=== PATIENT | female | born 1980 | race Caucasian/White ===

== ENCOUNTER 2017-02-19 17:20 | Emergency (ER) | payer MEDICAID, OTHER ==
[~2017-02-19] VITALS: Ht 162.6 cm; Wt 107.4 kg
[~2017-02-19 17:20] MED LIST: DEXL60CA PO; DULO30CA2 PO; LABE100T3 PO; METO10TA82 PO; PRED5TAB PO; hydrochloroquine PO
[2017-02-19] MEDS ORDERED: HYDR200T PO (17:35)
[2017-02-19] MEDS ORDERED: TRIA1TAB5 PO (17:35)
[2017-02-19] MEDS ORDERED: AMLO5TAB2 PO (17:35)
[2017-02-19] MEDS ORDERED: METH25VI57 SQ (17:35)
[2017-02-19] MEDS ORDERED: MYCO500T PO (17:35)
[2017-02-19] MEDS ORDERED: ESOM40CA PO (17:35)
[2017-02-19] MEDS ORDERED: ATEN25TA PO (17:35)
[2017-02-19] MEDS ORDERED: TOFA5TAB PO (17:36)
[2017-02-19] MEDS ORDERED: METOCLOPRAMIDE 5 MG/ML, 2ML ONE (17:53)
[2017-02-19] MEDS ORDERED: KETOROLAC 30 MG/1 ML ONE (17:53)
[2017-02-19] MEDS ORDERED: SODIUM CHLORIDE FLUSH 10ML SYR IVF ONE (18:00)
[2017-02-19] MEDS ORDERED: SODIUM CHLORIDE 0.9% 1,000ML IVBOLUS ONE (18:00)
[2017-02-19] MEDS ORDERED: METOCLOPRAMIDE 5 MG/ML, 2ML IVPush ONE (18:00)
[2017-02-19] MEDS ORDERED: KETOROLAC 30 MG/1 ML IVPush ONE (18:00)
[2017-02-19 18:15] LABS: ASPARTATE AMINO TRANSFERASE 24 U/L (15-37); BLOOD UREA NITROGEN 12 mg/dL (7-18)
[2017-02-19 18:43] LABS: HCG UR OBC PASS
[2017-02-19 19:18] VITALS: BP 100/61
[2017-02-19 19:19] LABS: ANISOCYTOSIS 1+; MICROCYTOSIS 1+; POLYCHROMASIA 1+
[2017-02-19 19:20] LABS: LARGE PLATELETS 1+
== END 2017-02-19 19:21 | disposition home or self-care (01) ==
LOC: ED 17:54
DX: R19.7 Diarrhea, unspecified (principal); B34.9 Viral infection, unspecified; R11.2 Nausea with vomiting, unspecified; I10 Essential (primary) hypertension; M32.9 Systemic lupus erythematosus, unspecified
CPT/HCPCS: 36415; 70450; 80053; 81003; 81025; 85025; 96361; 96374; 96375; 99285; J1885; J2765; J7030

== ENCOUNTER 2018-04-14 12:50 | Emergency (ER) | payer MEDICAID ==
[~2018-04-14] VITALS: Ht 162.6 cm; Wt 93.2 kg
[~2018-04-14 12:50] MED LIST changes: +AMLO5TAB7 PO; +ATEN25TA PO; -DEXL60CA PO; +DEXL60CA2 PO; +ESOM40CA PO; +HYDR200T72 PO; -LABE100T3 PO; +LABE100T6 PO; +METH25VI57 SQ; +MYCO500T PO; +TOFA5TAB PO; +TRIA1TAB5 PO
[2018-04-14] MEDS ORDERED: SODIUM CHLORIDE FLUSH 10ML SYR IVF ONE (13:30)
[2018-04-14] MEDS ORDERED: ONDANSETRON 2MG/ML, 2ML IVPush ONE (13:30)
[2018-04-14] MEDS ORDERED: LORazepam 2 MG/ML, 1ML IVPush ONE (13:30)
[2018-04-14] MEDS ORDERED: SODIUM CHLORIDE 0.9% 1,000ML IVBOLUS ONE (13:30)
[2018-04-14] MEDS ORDERED: LORazepam 2 MG/ML, 1ML ONE (13:37)
[2018-04-14] MEDS ORDERED: ONDANSETRON ODT 4 MG ONE (13:37)
[2018-04-14 13:40] LABS: ALANINE AMINOTRANSFERASE 58 U/L (12-78); ALBUMIN 3.1 g/dL (3.4-5.0); ANION GAP 10 mmol/L (5-15); CALCIUM 8.2 mg/dL (8.5-10.1); CHLORIDE 106 mmol/L (98-107); CREATININE 0.66 mg/dL (0.55-1.02)
[2018-04-14 13:42] LABS: ALKALINE PHOSPHATASE 95 U/L (45-117); BILIRUBIN,TOTAL 0.3 mg/dL (0.2-1.0); TOTAL PROTEIN 7.5 g/dL (6.4-8.2)
[2018-04-14 13:43] LABS: MEAN CORPUSCULAR HEMOGLOBIN 24.9 pg (27.0-34.8); MEAN CORPUSCULAR HGB CONC 32.4 g/dL (32.4-35.8); MEAN CORPUSCULAR VOLUME 76.8 fL (80-100); MEAN PLATELET VOLUME 9.3 fL (7.4-10.4); PLATELET COUNT 237 x10^3/uL (130-400); RED BLOOD COUNT 5.03 x10^6/uL (3.82-5.3); RED CELL DISTRIBUTION WIDTH 28.8 % (9.6-15.2)
[2018-04-14 13:54] LABS: MICROSCOPIC INDICATED
[2018-04-14 13:58] LABS: HCG UR SG >= 1.030 (1.003-1.030)
[2018-04-14] MEDS ORDERED: ONDANSETRON ODT 4 MG PO ONE (14:00)
[2018-04-14 14:28] LABS: BASOPHILS # (AUTO) 0.01 x10^3/uL (0-0.1); BASOPHILS % (AUTO) 0 % (0-1); EOSINOPHILS # (AUTO) 0.06 x10^3/uL (0-0.4); EOSINOPHILS % (AUTO) 1 % (1-7); LYMPHOCYTES # (AUTO) 1.68 x10^3/uL (1-3.4); LYMPHOCYTES % (AUTO) 34 % (22-44); MD SCAN; MONOCYTES # (AUTO) 0.33 x10^3/uL (0.2-0.8); MONOCYTES % (AUTO) 7 % (2-9); NEUTROPHILS # (AUTO) 2.92 x10^3/uL (1.8-6.8); NEUTROPHILS % (AUTO) 59 % (42-75)
[2018-04-14 14:38] LABS: CULTURE INDICATED? NO
[2018-04-14 15:15] VITALS: BP 138/77
== END 2018-04-14 15:23 | disposition home or self-care (01) ==
LOC: ED 13:30
DX: A08.4 Viral intestinal infection, unspecified (principal); Z88.8 Allergy status to other drugs, medicaments and biological substances; I10 Essential (primary) hypertension
CPT/HCPCS: 36415; 74021; 80053; 81001; 81025; 83605; 83690; 85025; 96361; 96374; 99285; J2060; J7030; Q0162

== ENCOUNTER 2018-05-11 14:27 | Inpatient (IN) | payer MEDICAID ==
[~2018-05-11] VITALS: Ht 162.6 cm; Wt 94.7 kg
[2018-05-11] MEDS ORDERED: FAMOTIDINE 20 MG/2 ML IVP ONE (15:00)
[2018-05-11] MEDS ORDERED: ONDANSETRON 2MG/ML, 2ML IVPush ONE (15:00)
[2018-05-11] MEDS ORDERED: METOCLOPRAMIDE 5 MG/ML, 2ML IVPush ONE (15:00)
[2018-05-11 15:13] LABS: MEAN CORPUSCULAR HEMOGLOBIN 26.2 pg (27.0-34.8); MEAN CORPUSCULAR HGB CONC 32.5 g/dL (32.4-35.8); MEAN CORPUSCULAR VOLUME 80.5 fL (80-100); PLATELET COUNT 228 x10^3/uL (130-400); RED BLOOD COUNT 6.16 x10^6/uL (3.82-5.3); RED CELL DISTRIBUTION WIDTH 24.4 % (9.6-15.2)
[2018-05-11 15:15] LABS: ALANINE AMINOTRANSFERASE 91 U/L (12-78); ALBUMIN 3.7 g/dL (3.4-5.0); ANION GAP 11 mmol/L (5-15); CALCIUM 9.2 mg/dL (8.5-10.1); CHLORIDE 102 mmol/L (98-107); CREATININE 0.62 mg/dL (0.55-1.02)
[2018-05-11] MEDS ORDERED: MORPHINE SULFATE 4 MG/ML, 1ML ONE ×3 (15:19→16:40)
[2018-05-11] MEDS ORDERED: METOCLOPRAMIDE 5 MG/ML, 2ML ONE (15:19)
[2018-05-11 15:20] LABS: ALKALINE PHOSPHATASE 131 U/L (45-117); BILIRUBIN,TOTAL 0.5 mg/dL (0.2-1.0); TOTAL PROTEIN 8.7 g/dL (6.4-8.2)
[2018-05-11] MEDS ORDERED: FAMOTIDINE 20 MG/2 ML ONE (15:20)
[2018-05-11] MEDS: MORPHINE SULFATE 4 MG/ML, 1ML IVPush PRN ×4 (15:23→22:03)
[2018-05-11 15:38] LABS: BASOPHILS # (AUTO) 0.01 x10^3/uL (0-0.1); BASOPHILS % (AUTO) 0 % (0-1); EOSINOPHILS # (AUTO) 0.03 x10^3/uL (0-0.4); EOSINOPHILS % (AUTO) 0 % (1-7); LYMPHOCYTES # (AUTO) 1.11 x10^3/uL (1-3.4); LYMPHOCYTES % (AUTO) 10 % (22-44); MD MORPH REVIEW ONLY; MONOCYTES % (AUTO) 4 % (2-9); NEUTROPHILS # (AUTO) 9.58 x10^3/uL (1.8-6.8); NEUTROPHILS % (AUTO) 85 % (42-75)
[2018-05-11 15:41] LABS: <PLATELET ESTIMATE> ADEQUATE; ANISOCYTOSIS 1+; MICROCYTOSIS 1+; POLYCHROMASIA 1+
[2018-05-11 15:43] LABS: <PLT MORPHOLOGY> NORMAL PLT MORPH
[2018-05-11] MEDS ORDERED: OMNIPAQUE 350 MG/ML, 100ML BOTTLE ONE (15:57)
[2018-05-11] MEDS ORDERED: SODIUM CHLORIDE 0.9% 1,000ML IVBOLUS ONE ×2 (16:00)
[2018-05-11] MEDS ORDERED: BUPR100T11 PO (16:52)
[2018-05-11] MEDS ORDERED: MORPHINE SULFATE 4 MG/ML, 1ML IVPush ONE (17:00)
[2018-05-11] MEDS ORDERED: PROMETHAZINE 25 MG/ML, 1ML IM PRN (17:30)
[2018-05-11] MEDS ORDERED: METOCLOPRAMIDE 5 MG/ML, 2ML IVPush PRN (17:30)
[2018-05-11] MEDS ORDERED: ONDANSETRON 2MG/ML, 2ML IVPush PRN (17:30)
[2018-05-11] MEDS ORDERED: ONDANSETRON ODT 4 MG PO PRN (17:30)
[2018-05-11 18:09] LABS: HEMOGLOBIN A1C 5.4 % (4.2-6.3)
[2018-05-11 19:33] VITALS: BP 157/117
[2018-05-11] MEDS: ATENOLOL 25 MG TABLET PO SCH (20:26)
[2018-05-11] MEDS: SODIUM CHLORIDE 0.9% 1,000 ML IV SCH ×2 (20:30→22:08)
[2018-05-11] MEDS: ENOXAPARIN 40 MG/0.4 ML SQ SCH (20:30)
[2018-05-11] MEDS: BUPROPION 100 MG TABLET PO SCH (20:51)
[2018-05-12 00:25] VITALS: BP 147/97
[2018-05-12] MEDS: MORPHINE SULFATE 4 MG/ML, 1ML IVPush PRN ×7 (01:01→23:05)
[2018-05-12] MEDS: SODIUM CHLORIDE 0.9% 1,000 ML IV SCH ×5 (01:05→23:13)
[2018-05-12 06:06] LABS: ALANINE AMINOTRANSFERASE 82 U/L (12-78); ALBUMIN 2.6 g/dL (3.4-5.0); ANION GAP 9 mmol/L (5-15); CALCIUM 7.4 mg/dL (8.5-10.1); CHLORIDE 108 mmol/L (98-107); CREATININE 0.46 mg/dL (0.55-1.02)
[2018-05-12 06:10] LABS: ALKALINE PHOSPHATASE 111 U/L (45-117); CHOL/HDL RATIO 2.6; CHOLESTEROL, TOTAL 128 mg/dL (140-239); HDL CHOL % 38 % (28-40); HDL CHOLESTEROL (DIRECT) 49 mg/dL (40-60); LDL CHOLESTEROL,CALCULATED 59 mg/dL (54-169); LDL/HDL RATIO 1.2 (0.5-3.0); TOTAL PROTEIN 6.2 g/dL (6.4-8.2); TRIGLYCERIDES 100 mg/dL (50-200); VLDL CHOLESTEROL 20 mg/dL (0-25)
[2018-05-12 06:14] LABS: MEAN CORPUSCULAR HEMOGLOBIN 26.2 pg (27.0-34.8); MEAN CORPUSCULAR HGB CONC 32.3 g/dL (32.4-35.8); MEAN CORPUSCULAR VOLUME 81.1 fL (80-100); MEAN PLATELET VOLUME 9.1 fL (7.4-10.4); PLATELET COUNT 180 x10^3/uL (130-400); RED BLOOD COUNT 4.77 x10^6/uL (3.82-5.3)
[2018-05-12 06:50] LABS: BASOPHILS # (AUTO) 0.02 x10^3/uL (0-0.1); BASOPHILS % (AUTO) 0 % (0-1); EOSINOPHILS % (AUTO) 1 % (1-7); LYMPHOCYTES # (AUTO) 1.08 x10^3/uL (1-3.4); LYMPHOCYTES % (AUTO) 14 % (22-44); MD SCAN; MONOCYTES % (AUTO) 6 % (2-9); NEUTROPHILS # (AUTO) 6.12 x10^3/uL (1.8-6.8); NEUTROPHILS % (AUTO) 78 % (42-75)
[2018-05-12 07:41] LABS: AMPHETAMINE SCREEN, URINE Negative (Negative); BARBITURATE SCREEN, URINE Negative (Negative); BENZODIAZEPINE SCREEN, URINE Negative (Negative); CANNABINOID SCREEN, URINE Positive (Negative); COCAINE SCREEN, URINE Negative (Negative); METHADONE SCREEN, URINE Negative (Negative); OPIATE SCREEN, URINE Positive (Negative)
[2018-05-12 07:42] VITALS: BP 126/84
[2018-05-12] MEDS: PANTOPROZOLE 40MG TABLET PO SCH (07:42)
[2018-05-12] MEDS: DULOXETINE 30 MG CAPSULE.DR PO SCH (07:43)
[2018-05-12] MEDS: ATENOLOL 25 MG TABLET PO SCH ×2 (07:43→20:55)
[2018-05-12] MEDS: TRIAMTERENE/HCTZ 75/50MG TABLET PO SCH (07:43)
[2018-05-12] MEDS: HYDROXYCHLOROQUINE 200 MG TABLET PO SCH (07:43)
[2018-05-12] MEDS: AMLODIPINE 5 MG TABLET PO SCH (07:43)
[2018-05-12] MEDS: BUPROPION 100 MG TABLET PO SCH ×2 (07:43→20:55)
[2018-05-12 07:58] LABS: MICROSCOPIC INDICATED
[2018-05-12 08:03] LABS: CULTURE INDICATED? YES
[2018-05-12] MEDS ORDERED: CALCIUM GLUCONATE 9.2 MEQ in SODIUM CHLORIDE 0.9% 100 ML IV ONE (09:00)
[2018-05-12] MEDS ORDERED: MAGNESIUM SULFATE 4 GM in SODIUM CHLORIDE 0.9% 100 ML IV ONE (09:00)
[2018-05-12] MEDS ORDERED: MAGNESIUM SULFATE PMX 4GM/100M 100 ML IV ONE (10:30)
[2018-05-12] MEDS ORDERED: POTASSIUM PHOSPHATE 44 MEQ in SODIUM CHLORIDE 0.9% 500 ML IV ONE (11:00)
[2018-05-12 12:53] VITALS: BP 113/78
[2018-05-12] MEDS: ENOXAPARIN 40 MG/0.4 ML SQ SCH (16:30)
[2018-05-12 19:36] VITALS: BP 110/74
[2018-05-13] MEDS: MORPHINE SULFATE 4 MG/ML, 1ML IVPush PRN ×2 (02:23→05:20)
[2018-05-13 03:30] VITALS: BP 91/60
[2018-05-13] MEDS: SODIUM CHLORIDE 0.9% 1,000 ML IV SCH ×5 (04:17→23:30)
[2018-05-13 04:59] LABS: MEAN CORPUSCULAR HEMOGLOBIN 26.2 pg (27.0-34.8); MEAN CORPUSCULAR HGB CONC 32.3 g/dL (32.4-35.8); MEAN CORPUSCULAR VOLUME 81.3 fL (80-100); MEAN PLATELET VOLUME 9.1 fL (7.4-10.4); PLATELET COUNT 160 x10^3/uL (130-400); RED BLOOD COUNT 4.67 x10^6/uL (3.82-5.3); RED CELL DISTRIBUTION WIDTH 24.6 % (9.6-15.2)
[2018-05-13 05:04] LABS: CHLORIDE 106 mmol/L (98-107)
[2018-05-13 05:12] LABS: ALANINE AMINOTRANSFERASE 120 U/L (12-78); ALBUMIN 2.8 g/dL (3.4-5.0); ALKALINE PHOSPHATASE 224 U/L (45-117); ANION GAP 8 mmol/L (5-15); BILIRUBIN,TOTAL 0.9 mg/dL (0.2-1.0); CALCIUM 7.8 mg/dL (8.5-10.1); CREATININE 0.49 mg/dL (0.55-1.02)
[2018-05-13 06:08] LABS: BASOPHILS # (AUTO) 0.05 x10^3/uL (0-0.1); BASOPHILS % (AUTO) 1 % (0-1); EOSINOPHILS # (AUTO) 0.28 x10^3/uL (0-0.4); EOSINOPHILS % (AUTO) 4 % (1-7); LYMPHOCYTES % (AUTO) 17 % (22-44); MD SCAN; MONOCYTES # (AUTO) 0.44 x10^3/uL (0.2-0.8); MONOCYTES % (AUTO) 6 % (2-9); NEUTROPHILS # (AUTO) 5.79 x10^3/uL (1.8-6.8); NEUTROPHILS % (AUTO) 74 % (42-75)
[2018-05-13] MEDS ORDERED: CEFTRIAXONE PMX 2GM/50ML 50 ML IVPB SCH (07:00)
[2018-05-13] MEDS: CEFTRIAXONE PMX 2GM/50ML 50 ML IVPB SCH (07:57)
[2018-05-13 08:14] VITALS: BP 101/64
[2018-05-13] MEDS: TRIAMTERENE/HCTZ 75/50MG TABLET PO SCH (08:42)
[2018-05-13] MEDS: BUPROPION 100 MG TABLET PO SCH ×2 (08:43→21:16)
[2018-05-13] MEDS: HYDROXYCHLOROQUINE 200 MG TABLET PO SCH (08:43)
[2018-05-13] MEDS: ATENOLOL 25 MG TABLET PO SCH ×2 (08:43→21:16)
[2018-05-13] MEDS: DULOXETINE 30 MG CAPSULE.DR PO SCH (08:43)
[2018-05-13] MEDS: AMLODIPINE 5 MG TABLET PO SCH (08:43)
[2018-05-13] MEDS: HYDROmorphone 2 MG/ML, 1ML IVPush PRN ×4 (08:44→21:16)
[2018-05-13] MEDS: PANTOPROZOLE 40MG TABLET PO SCH (08:50)
[2018-05-13 14:30] VITALS: BP 115/68
[2018-05-13] MEDS: ENOXAPARIN 40 MG/0.4 ML SQ SCH (16:14)
[2018-05-13 20:08] VITALS: BP 92/60
[2018-05-13 21:14] VITALS: BP 107/70
[2018-05-14] MEDS: HYDROmorphone 2 MG/ML, 1ML IVPush PRN ×3 (00:38→06:30)
[2018-05-14 03:17] VITALS: BP 95/62
[2018-05-14] MEDS: SODIUM CHLORIDE 0.9% 1,000 ML IV SCH ×2 (04:32→09:30)
[2018-05-14 05:33] LABS: ALBUMIN 2.4 g/dL (3.4-5.0); ANION GAP 8 mmol/L (5-15); CALCIUM 7.5 mg/dL (8.5-10.1); CHLORIDE 108 mmol/L (98-107)
[2018-05-14 05:37] LABS: ALANINE AMINOTRANSFERASE 68 U/L (12-78); ALKALINE PHOSPHATASE 156 U/L (45-117); BILIRUBIN,TOTAL 0.5 mg/dL (0.2-1.0); TOTAL PROTEIN 6.4 g/dL (6.4-8.2)
[2018-05-14 07:05] VITALS: BP 96/61
[2018-05-14] MEDS: DULOXETINE 30 MG CAPSULE.DR PO SCH (07:56)
[2018-05-14] MEDS: PANTOPROZOLE 40MG TABLET PO SCH (07:56)
[2018-05-14] MEDS: HYDROXYCHLOROQUINE 200 MG TABLET PO SCH (07:56)
[2018-05-14] MEDS: AMLODIPINE 5 MG TABLET PO SCH (07:57)
[2018-05-14] MEDS: BUPROPION 100 MG TABLET PO SCH (07:57)
[2018-05-14] MEDS: ATENOLOL 25 MG TABLET PO SCH (07:57)
[2018-05-14] MEDS: TRIAMTERENE/HCTZ 75/50MG TABLET PO SCH (08:00)
[2018-05-14] MEDS: CEFTRIAXONE PMX 2GM/50ML 50 ML IVPB SCH (08:00)
[2018-05-14] MEDS ORDERED: CEFD300C37 PO (10:44)
[2018-05-14] MEDS ORDERED: TRAM50TA2 PO (10:44)
[2018-05-14] MEDS ORDERED: HYDROmorphone 2 MG/ML, 1ML IVPush PRN (11:30)
== END 2018-05-14 13:38 | disposition home or self-care (01) | DRG 440 ==
LOC: ED 15:21 → EDIP 16:24 → 3NE 18:13
PROVIDERS: ADMIT Hospitalist; ATTEND Hospitalist
DX: K85.30 Drug induced acute pancreatitis without necrosis or infection (principal); T50.2X5A Adverse effect of carbonic-anhydrase inhibitors, benzothiadiazides and other diuretics, initial encounter; E66.01 Morbid (severe) obesity due to excess calories; E83.42 Hypomagnesemia; E83.51 Hypocalcemia; E86.0 Dehydration; G43.909 Migraine, unspecified, not intractable, without status migrainosus; F32.9 Major depressive disorder, single episode, unspecified; F12.90 Cannabis use, unspecified, uncomplicated; M32.9 Systemic lupus erythematosus, unspecified; I10 Essential (primary) hypertension; K76.0 Fatty (change of) liver, not elsewhere classified; Z98.51 Tubal ligation status; Y92.89 Other specified places as the place of occurrence of the external cause; Z68.35 Body mass index [BMI] 35.0-35.9, adult; Z98.84 Bariatric surgery status; Z90.49 Acquired absence of other specified parts of digestive tract; Z88.1 Allergy status to other antibiotic agents; Z88.8 Allergy status to other drugs, medicaments and biological substances; Z79.899 Other long term (current) drug therapy
CPT/HCPCS: 36415; 99285; S0028; 74177; 76700; 80053; 80061; 80074; 80307; 81001; 83036; 83690; 83735; 84100; 84703; 85025; 87040; 87086; 96361; 96374; 96375; G0378; J0610; J0696; J1170; J3475; Q9967; J2765; J7030; J7040; J7517

== ENCOUNTER 2018-11-12 11:40 | Inpatient (IN) | payer MEDICAID ==
[~2018-11-12] VITALS: Ht 162.6 cm; Wt 83.7 kg
[~2018-11-12 11:40] MED LIST changes: +AMLO-150 PO; -AMLO5TAB7 PO; +BUPR100T11 PO; +CEFD300C37 PO; +TRAM50TA2 PO
[2018-11-12] MEDS ORDERED: SODIUM CHLORIDE 0.9% 1,000 ML IV ONE (12:00)
[2018-11-12] MEDS ORDERED: SODIUM CHLORIDE FLUSH 10ML SYR IVF ONE (12:00)
[2018-11-12] MEDS ORDERED: ONDANSETRON 2MG/ML, 2ML IVPush ONE (12:00)
[2018-11-12] MEDS ORDERED: SODIUM CHLORIDE 0.9% 1,000ML IVBOLUS ONE (12:00)
[2018-11-12] MEDS ORDERED: HYDROmorphone 1 MG/ML, 1ML VIAL ONE ×2 (12:19→13:28)
[2018-11-12] MEDS ORDERED: ONDANSETRON 2MG/ML, 2ML ONE (12:19)
[2018-11-12] MEDS: HYDROmorphone 2 MG/ML, 1ML IVPush PRN ×2 (12:25→13:30)
[2018-11-12 12:31] LABS: BASOPHILS # (AUTO) 0.05 x10^3/uL (0-0.1); BASOPHILS % (AUTO) 1 % (0-1); EOSINOPHILS # (AUTO) 0.01 x10^3/uL (0-0.4); EOSINOPHILS % (AUTO) 0 % (1-7); LYMPHOCYTES # (AUTO) 1.45 x10^3/uL (1-3.4); LYMPHOCYTES % (AUTO) 16 % (22-44); MD NO; MEAN CORPUSCULAR HEMOGLOBIN 24.3 pg (27.0-34.8); MEAN CORPUSCULAR HGB CONC 32.4 g/dL (32.4-35.8); MEAN CORPUSCULAR VOLUME 75.2 fL (80-100); MEAN PLATELET VOLUME 8.4 fL (7.4-10.4); MONOCYTES % (AUTO) 7 % (2-9); NEUTROPHILS # (AUTO) 6.84 x10^3/uL (1.8-6.8); NEUTROPHILS % (AUTO) 76 % (42-75); PLATELET COUNT 244 x10^3/uL (130-400); RED BLOOD COUNT 5.42 x10^6/uL (3.82-5.3)
--- NOTE | 2018-11-12 12:34 | NUR ---
BP CUFF, PULSE OX IN PLACE. IV STARTED, LABS DRAWN WITH START. URINE COLLECTED/SENT TO LAB. MEDS AND IVF GIVEN PER ERP ORDER FOR UPPERQUADRANT ABD PAIN AND NAUSEA. CALL LIGHT WITHIN REACH, WARM BLANKET PROVIDED. LIGHTS DIMMED PER REQUEST.
[2018-11-12 12:43] LABS: ALANINE AMINOTRANSFERASE 26 U/L (12-78); ALBUMIN 3.4 g/dL (3.4-5.0); ANION GAP 8 mmol/L (5-15); CALCIUM 7.8 mg/dL (8.5-10.1); CHLORIDE 108 mmol/L (98-107); CREATININE 0.59 mg/dL (0.55-1.02)
[2018-11-12 12:45] LABS: ALKALINE PHOSPHATASE 105 U/L (45-117); BILIRUBIN,TOTAL 0.3 mg/dL (0.2-1.0); TOTAL PROTEIN 7.5 g/dL (6.4-8.2)
[2018-11-12 12:51] LABS: HCG UR SG 1.015 (1.003-1.030); MICROSCOPIC AUTO
[2018-11-12 12:54] LABS: CULTURE INDICATED? YES
[2018-11-12] MEDS ORDERED: SODIUM CHLORIDE FLUSH 10ML SYR IVF PRN (13:30)
--- NOTE | 2018-11-12 13:33 | NUR ---
PT MEDICATED FOR RETURNING PAIN, RATED 10/10. VS UPDATED IN COMPUTER.
--- NOTE | 2018-11-12 13:53 | NUR ---
REPORT TO SERVANDO RN, PT READY FOR TRANSPORT TO FLOOR. PT SLEEPING INTERMITTENTLY, PAIN DECREASED WITH DILAUDID.
[2018-11-12] MEDS ORDERED: HYDROmorphone 2 MG/ML, 1ML ONE (14:48)
[2018-11-12] MEDS: SODIUM CHLORIDE 0.9% 1,000 ML IV SCH ×2 (14:59→22:22)
[2018-11-12] MEDS ORDERED: HYDROmorphone 1 MG/ML, 1ML INJ IV PRN (15:00)
[2018-11-12] MEDS ORDERED: ONDANSETRON 2MG/ML, 2ML IVPush PRN (15:00)
[2018-11-12 15:15] VITALS: BP 162/113
[2018-11-12] MEDS ORDERED: PROMETHAZINE 25 MG/ML, 1ML IM PRN (17:00)
[2018-11-12] MEDS: HYDROmorphone 2 MG/ML, 1ML IV PRN ×2 (17:03→21:35)
[2018-11-12] MEDS ORDERED: LIDODERM 5% PATCH TD PRN (17:30)
[2018-11-12] MEDS ORDERED: LABETALOL 5MG/ML, 20ML IVPush PRN (17:30)
[2018-11-12] MEDS: ENOXAPARIN 40 MG/0.4 ML SQ SCH (17:45)
[2018-11-12 17:48] VITALS: BP 160/119
[2018-11-12] MEDS ORDERED: LABETALOL 5 MG/ML SYRINGE IVPush PRN (18:00)
[2018-11-12 18:17] LABS: BASOPHILS # (AUTO) 0.01 x10^3/uL (0-0.1); BASOPHILS % (AUTO) 0 % (0-1); MD NO; MEAN CORPUSCULAR HEMOGLOBIN 24.4 pg (27.0-34.8); RED BLOOD COUNT 5.74 x10^6/uL (3.82-5.3)
[2018-11-12 18:33] LABS: ANION GAP 10 mmol/L (5-15); CALCIUM 7.7 mg/dL (8.5-10.1); CHLORIDE 106 mmol/L (98-107); CREATININE 0.63 mg/dL (0.55-1.02)
[2018-11-12 18:43] LABS: FREE T4 (FREE THYROXINE) 0.66 ng/dL (0.76-1.46); THYROID STIMULATING HORMONE 0.405 mIU/L (0.358-3.740)
[2018-11-12 18:53] LABS: HCT (SEDRATE) 40.8 % (34.6-47.8)
[2018-11-12] MEDS: ATENOLOL 50 MG TABLET PO SCH (19:25)
[2018-11-12] MEDS: BUPROPION 100 MG TABLET PO SCH (19:25)
[2018-11-12 19:45] VITALS: BP 179/129
[2018-11-12] MEDS: PROMETHAZINE 25 MG/ML, 1ML IM PRN (19:51)
[2018-11-12 20:44] VITALS: BP 172/126
[2018-11-12] MEDS: ENALAPRILAT 1.25 MG/ML, 2ML IVPush PRN ×2 (21:34→22:22)
[2018-11-12 21:38] LABS: EOSINOPHILS % (AUTO) 0 % (1-7); LYMPHOCYTES # (AUTO) 0.84 x10^3/uL (1-3.4); LYMPHOCYTES % (AUTO) 6 % (22-44); MEAN CORPUSCULAR VOLUME 76.2 fL (80-100); MEAN PLATELET VOLUME 8.9 fL (7.4-10.4); MONOCYTES # (AUTO) 0.86 x10^3/uL (0.2-0.8); MONOCYTES % (AUTO) 7 % (2-9); NEUTROPHILS # (AUTO) 11.52 x10^3/uL (1.8-6.8); NEUTROPHILS % (AUTO) 87 % (42-75); PLATELET COUNT 156 x10^3/uL (130-400)
[2018-11-12 22:05] VITALS: BP 174/122
[2018-11-12 22:49] VITALS: BP 177/130
[2018-11-12] MEDS ORDERED: hydrALAzine 20 MG/ML, 1ML IV ONE (23:00)
[2018-11-13 00:11] VITALS: BP 159/118
[2018-11-13] MEDS: PROMETHAZINE 25 MG/ML, 1ML IM PRN ×6 (00:27→21:30)
[2018-11-13] MEDS ORDERED: hydrALAzine 20 MG/ML, 1ML IV ONE (01:00)
[2018-11-13] MEDS: HYDROmorphone 2 MG/ML, 1ML IV PRN ×6 (01:24→22:34)
[2018-11-13 01:28] VITALS: BP 152/109
[2018-11-13 01:53] VITALS: BP 145/104
[2018-11-13 04:51] LABS: HCT (SEDRATE) 44.7 % (34.6-47.8)
[2018-11-13 05:20] LABS: C-REACTIVE PROTEIN, QUANT 4.6 mg/dL (0.02-0.49)
[2018-11-13] MEDS: PANTOPROZOLE 40MG TABLET PO SCH (05:21)
[2018-11-13] MEDS: SODIUM CHLORIDE 0.9% 1,000 ML IV SCH ×2 (06:22→13:49)
[2018-11-13] MEDS: PANTOPRAZOLE 40 MG IV IVPush SCH (07:30)
[2018-11-13 08:04] VITALS: BP 163/109
[2018-11-13] MEDS: HYDROXYCHLOROQUINE 200 MG TABLET PO SCH (08:14)
[2018-11-13] MEDS: AMLODIPINE 5 MG TABLET PO SCH (08:14)
[2018-11-13] MEDS: ATENOLOL 50 MG TABLET PO SCH ×2 (08:14→19:49)
[2018-11-13] MEDS: DULOXETINE 30 MG CAPSULE.DR PO SCH (08:15)
[2018-11-13] MEDS: BUPROPION 100 MG TABLET PO SCH ×2 (08:15→19:48)
[2018-11-13 13:06] VITALS: BP 150/108
[2018-11-13] MEDS: ENALAPRILAT 1.25 MG/ML, 2ML IVPush PRN (13:49)
[2018-11-13] MEDS: ENOXAPARIN 40 MG/0.4 ML SQ SCH (18:28)
[2018-11-13 18:48] VITALS: BP 149/113
[2018-11-14 01:20] VITALS: BP 120/84
[2018-11-14] MEDS: HYDROmorphone 2 MG/ML, 1ML IV PRN ×6 (02:30→23:23)
[2018-11-14 06:00] LABS: MEAN CORPUSCULAR HEMOGLOBIN 24.8 pg (27.0-34.8); MEAN CORPUSCULAR HGB CONC 32.9 g/dL (32.4-35.8); MEAN CORPUSCULAR VOLUME 75.3 fL (80-100); PLATELET COUNT 151 x10^3/uL (130-400); RED BLOOD COUNT 5.42 x10^6/uL (3.82-5.3); RED CELL DISTRIBUTION WIDTH 20.1 % (9.6-15.2)
[2018-11-14 06:09] LABS: ALBUMIN 2.7 g/dL (3.4-5.0); ANION GAP 10 mmol/L (5-15); CALCIUM 7.9 mg/dL (8.5-10.1); CHLORIDE 106 mmol/L (98-107)
[2018-11-14 06:12] LABS: ALANINE AMINOTRANSFERASE 19 U/L (12-78); ALKALINE PHOSPHATASE 121 U/L (45-117); BILIRUBIN,TOTAL 0.9 mg/dL (0.2-1.0); CREATININE 0.56 mg/dL (0.55-1.02); TOTAL PROTEIN 6.9 g/dL (6.4-8.2)
[2018-11-14 06:27] LABS: C-REACTIVE PROTEIN, QUANT > 19.00 mg/dL (0.02-0.49)
[2018-11-14] MEDS: PANTOPRAZOLE 40 MG IV IVPush SCH (06:28)
[2018-11-14] MEDS: PANTOPROZOLE 40MG TABLET PO SCH (06:28)
[2018-11-14 07:40] VITALS: BP 120/79
[2018-11-14] MEDS: DULOXETINE 30 MG CAPSULE.DR PO SCH (07:51)
[2018-11-14] MEDS: AMLODIPINE 5 MG TABLET PO SCH (07:51)
[2018-11-14] MEDS: BUPROPION 100 MG TABLET PO SCH ×2 (07:51→19:15)
[2018-11-14] MEDS: HYDROXYCHLOROQUINE 200 MG TABLET PO SCH (07:52)
[2018-11-14] MEDS: ATENOLOL 50 MG TABLET PO SCH ×2 (07:52→19:15)
[2018-11-14 08:21] LABS: MD YES
[2018-11-14 08:23] LABS: BAND#(MANUAL) 1.97 x10^3/uL; BANDS%(MANUAL) 10 % (0-7); LYMPH#(MANUAL) 0.59 x10^3/uL (1-3.4); LYMPHS% (MANUAL) 3 % (22-44); MONOS#(MANUAL) 0.59 x10^3/uL (0.3-2.7); MONOS% (MANUAL) 3 % (2-9); SEG#(MANUAL) 16.55 x10^3/uL (1.8-6.8); SEGS% (MANUAL) 84 % (42-75)
[2018-11-14 08:24] LABS: ANISOCYTOSIS 1+; MICROCYTOSIS 1+
[2018-11-14 08:25] LABS: OVALOCYTES 1+; TARGET CELLS 1+
[2018-11-14 08:26] LABS: <PLATELET ESTIMATE> ADEQUATE; <PLT MORPHOLOGY> NORMAL PLT MORPH
[2018-11-14 14:30] VITALS: BP 109/79
[2018-11-14] MEDS: SODIUM CHLORIDE 0.9% 1,000 ML IV SCH (16:08)
[2018-11-14 16:43] LABS: MICROSCOPIC INDICATED
[2018-11-14 16:44] LABS: CULTURE INDICATED? YES
[2018-11-14] MEDS: ENOXAPARIN 40 MG/0.4 ML SQ SCH (17:11)
[2018-11-14 19:38] VITALS: BP 106/72
[2018-11-15] MEDS: PROMETHAZINE 25 MG/ML, 1ML IM PRN (00:37)
[2018-11-15] MEDS: SODIUM CHLORIDE 0.9% 1,000 ML IV SCH (01:36)
[2018-11-15 02:57] VITALS: BP 111/67
[2018-11-15] MEDS ORDERED: FOLIC ACID 1 MG TABLET PO ONE (03:12)
[2018-11-15] MEDS: HYDROmorphone 2 MG/ML, 1ML IV PRN (03:18)
[2018-11-15] MEDS ORDERED: LORazepam 0.5MG TABLET PO PRN (03:30)
[2018-11-15] MEDS ORDERED: LORazepam 2 MG/ML, 1ML IV PRN ×4 (03:30)
[2018-11-15] MEDS ORDERED: THIAMINE 100MG TABLET PO ONE (03:30)
[2018-11-15] MEDS ORDERED: THIAMINE 200 MG in DEXTROSE 5% 50 ML IVPB ONE (03:30)
[2018-11-15] MEDS ORDERED: LORazepam 1MG TABLET PO PRN ×3 (03:30)
[2018-11-15] MEDS: LORazepam 1MG TABLET PO PRN (03:49)
[2018-11-15] MEDS: PANTOPROZOLE 40MG TABLET PO SCH (05:19)
[2018-11-15 06:04] LABS: BASOPHILS # (AUTO) 0.01 x10^3/uL (0-0.1); BASOPHILS % (AUTO) 0 % (0-1); EOSINOPHILS # (AUTO) 0.05 x10^3/uL (0-0.4); EOSINOPHILS % (AUTO) 0 % (1-7); LYMPHOCYTES # (AUTO) 1.35 x10^3/uL (1-3.4); LYMPHOCYTES % (AUTO) 10 % (22-44); MD NO; MEAN CORPUSCULAR HEMOGLOBIN 24.6 pg (27.0-34.8); MEAN CORPUSCULAR HGB CONC 32.9 g/dL (32.4-35.8); MEAN PLATELET VOLUME 9.8 fL (7.4-10.4); MONOCYTES # (AUTO) 0.65 x10^3/uL (0.2-0.8); MONOCYTES % (AUTO) 5 % (2-9); NEUTROPHILS # (AUTO) 11.42 x10^3/uL (1.8-6.8); NEUTROPHILS % (AUTO) 85 % (42-75); PLATELET COUNT 144 x10^3/uL (130-400); RED BLOOD COUNT 4.11 x10^6/uL (3.82-5.3); RED CELL DISTRIBUTION WIDTH 21.1 % (9.6-15.2)
[2018-11-15 06:09] LABS: HCT (SEDRATE) 30.8 % (34.6-47.8)
[2018-11-15 06:14] LABS: ANION GAP 9 mmol/L (5-15); CALCIUM 8.1 mg/dL (8.5-10.1); CHLORIDE 102 mmol/L (98-107); CREATININE 0.57 mg/dL (0.55-1.02)
[2018-11-15 06:42] LABS: C-REACTIVE PROTEIN, QUANT > 19.00 mg/dL (0.02-0.49)
[2018-11-15] MEDS: PANTOPRAZOLE 40 MG IV IVPush SCH (07:30)
[2018-11-15 07:32] VITALS: BP 111/69
[2018-11-15] MEDS: FOLIC ACID 1 MG TABLET PO SCH (12:31)
[2018-11-15] MEDS: BUPROPION 100 MG TABLET PO SCH ×2 (12:32→20:17)
[2018-11-15] MEDS: HYDROXYCHLOROQUINE 200 MG TABLET PO SCH (12:32)
[2018-11-15] MEDS: DULOXETINE 30 MG CAPSULE.DR PO SCH (12:32)
[2018-11-15] MEDS: MULTIVITAMINS/MINERALS TABLET PO SCH (12:32)
[2018-11-15] MEDS: ATENOLOL 50 MG TABLET PO SCH ×2 (12:32→20:17)
[2018-11-15] MEDS: THIAMINE 100MG TABLET PO SCH (12:33)
[2018-11-15] MEDS: AMLODIPINE 5 MG TABLET PO SCH (12:33)
[2018-11-15] MEDS: LORazepam 2 MG/ML, 1ML IV PRN (13:06)
[2018-11-15 13:20] VITALS: BP 115/63
[2018-11-15 14:01] LABS: AMPHETAMINE SCREEN, URINE Negative (Negative); BARBITURATE SCREEN, URINE Positive (Negative); BENZODIAZEPINE SCREEN, URINE Negative (Negative); CANNABINOID SCREEN, URINE Negative (Negative); COCAINE SCREEN, URINE Negative (Negative); METHADONE SCREEN, URINE Negative (Negative); OPIATE SCREEN, URINE Positive (Negative); SODIUM,URINE RANDOM 21 mmol/L
[2018-11-15 14:29] LABS: OSMOLALITY,URINE 426 mOsm/kg (500-850)
[2018-11-15] MEDS: ONDANSETRON 2MG/ML, 2ML IVPush PRN (16:47)
[2018-11-15] MEDS: ENOXAPARIN 40 MG/0.4 ML SQ SCH (16:48)
[2018-11-15 18:43] VITALS: BP 109/66
[2018-11-16] MEDS: PANTOPRAZOLE 40 MG IV IVPush SCH ×2 (02:36→09:00)
[2018-11-16 02:58] VITALS: BP 126/81
[2018-11-16 05:04] LABS: BASOPHILS # (AUTO) 0.01 x10^3/uL (0-0.1); BASOPHILS % (AUTO) 0 % (0-1); EOSINOPHILS # (AUTO) 0.02 x10^3/uL (0-0.4); EOSINOPHILS % (AUTO) 0 % (1-7); LYMPHOCYTES # (AUTO) 0.89 x10^3/uL (1-3.4); LYMPHOCYTES % (AUTO) 12 % (22-44); MD NO; MEAN CORPUSCULAR HEMOGLOBIN 24.7 pg (27.0-34.8); MEAN CORPUSCULAR HGB CONC 32.9 g/dL (32.4-35.8); MEAN PLATELET VOLUME 8.7 fL (7.4-10.4); MONOCYTES # (AUTO) 0.37 x10^3/uL (0.2-0.8); MONOCYTES % (AUTO) 5 % (2-9); NEUTROPHILS # (AUTO) 5.96 x10^3/uL (1.8-6.8); NEUTROPHILS % (AUTO) 82 % (42-75); PLATELET COUNT 138 x10^3/uL (130-400); RED BLOOD COUNT 3.55 x10^6/uL (3.82-5.3); RED CELL DISTRIBUTION WIDTH 20.9 % (9.6-15.2)
[2018-11-16 05:14] LABS: CHLORIDE 106 mmol/L (98-107)
[2018-11-16 05:19] LABS: ANION GAP 10 mmol/L (5-15); CALCIUM 8.1 mg/dL (8.5-10.1); CREATININE 0.35 mg/dL (0.55-1.02)
[2018-11-16] MEDS: PANTOPROZOLE 40MG TABLET PO SCH (06:46)
[2018-11-16] MEDS: ONDANSETRON 2MG/ML, 2ML IVPush PRN (06:46)
[2018-11-16] MEDS: LORazepam 1MG TABLET PO PRN (06:46)
[2018-11-16] MEDS ORDERED: POTASSIUM CHLORIDE 40 MEQ in SODIUM CHLORIDE 0.9% 500 ML IV ONE (07:30)
[2018-11-16] MEDS: HYDROmorphone 2 MG/ML, 1ML IV PRN ×2 (09:00→17:56)
[2018-11-16] MEDS: ATENOLOL 50 MG TABLET PO SCH ×2 (09:01→20:42)
[2018-11-16] MEDS: FOLIC ACID 1 MG TABLET PO SCH (09:01)
[2018-11-16] MEDS: MULTIVITAMINS/MINERALS TABLET PO SCH (09:01)
[2018-11-16] MEDS: HYDROXYCHLOROQUINE 200 MG TABLET PO SCH (09:01)
[2018-11-16] MEDS: THIAMINE 100MG TABLET PO SCH (09:01)
[2018-11-16] MEDS: DULOXETINE 30 MG CAPSULE.DR PO SCH (09:02)
[2018-11-16] MEDS: BUPROPION 100 MG TABLET PO SCH ×2 (09:02→20:41)
[2018-11-16] MEDS: AMLODIPINE 5 MG TABLET PO SCH (09:02)
[2018-11-16 09:57] VITALS: BP 124/83
[2018-11-16] MEDS: HYDROcodone/APAP 5/325 TABLET PO PRN ×2 (12:59→20:42)
[2018-11-16 14:00] VITALS: BP 126/81
[2018-11-16] MEDS: ENOXAPARIN 40 MG/0.4 ML SQ SCH (17:30)
[2018-11-16 19:21] VITALS: BP 138/84
[2018-11-16] MEDS: LORazepam 2 MG/ML, 1ML IV PRN (22:49)
[2018-11-17] MEDS: ZOLPIDEM 5MG TABLET PO PRN ×3 (00:03→23:52)
[2018-11-17 00:56] VITALS: BP 134/77
[2018-11-17] MEDS: HYDROcodone/APAP 5/325 TABLET PO PRN ×2 (03:56→22:28)
[2018-11-17 05:29] LABS: BASOPHILS # (AUTO) 0.02 x10^3/uL (0-0.1); BASOPHILS % (AUTO) 0 % (0-1); EOSINOPHILS # (AUTO) 0.03 x10^3/uL (0-0.4); EOSINOPHILS % (AUTO) 1 % (1-7); LYMPHOCYTES # (AUTO) 0.87 x10^3/uL (1-3.4); LYMPHOCYTES % (AUTO) 16 % (22-44); MD NO; MEAN CORPUSCULAR HEMOGLOBIN 24.1 pg (27.0-34.8); MEAN CORPUSCULAR HGB CONC 31.9 g/dL (32.4-35.8); MEAN CORPUSCULAR VOLUME 75.5 fL (80-100); MEAN PLATELET VOLUME 8.5 fL (7.4-10.4); MONOCYTES # (AUTO) 0.46 x10^3/uL (0.2-0.8); MONOCYTES % (AUTO) 8 % (2-9); NEUTROPHILS # (AUTO) 4.23 x10^3/uL (1.8-6.8); NEUTROPHILS % (AUTO) 76 % (42-75); PLATELET COUNT 171 x10^3/uL (130-400); RED BLOOD COUNT 3.51 x10^6/uL (3.82-5.3); RED CELL DISTRIBUTION WIDTH 21.1 % (9.6-15.2)
[2018-11-17 05:40] LABS: ANION GAP 8 mmol/L (5-15); CALCIUM 8.2 mg/dL (8.5-10.1); CHLORIDE 107 mmol/L (98-107); CREATININE 0.37 mg/dL (0.55-1.02)
[2018-11-17 05:49] LABS: FREE T4 (FREE THYROXINE) 1.07 ng/dL (0.76-1.46)
[2018-11-17] MEDS: PANTOPROZOLE 40MG TABLET PO SCH (06:26)
[2018-11-17 07:30] VITALS: BP 130/76
[2018-11-17] MEDS: AMLODIPINE 5 MG TABLET PO SCH (09:20)
[2018-11-17] MEDS: THIAMINE 100MG TABLET PO SCH (09:20)
[2018-11-17] MEDS: DULOXETINE 30 MG CAPSULE.DR PO SCH (09:20)
[2018-11-17] MEDS: BUPROPION 100 MG TABLET PO SCH ×2 (09:20→20:33)
[2018-11-17] MEDS: HYDROXYCHLOROQUINE 200 MG TABLET PO SCH (09:20)
[2018-11-17] MEDS: HYDROmorphone 2 MG/ML, 1ML IV PRN ×3 (09:20→18:42)
[2018-11-17] MEDS: MULTIVITAMINS/MINERALS TABLET PO SCH (09:20)
[2018-11-17] MEDS: FOLIC ACID 1 MG TABLET PO SCH (09:20)
[2018-11-17] MEDS: ATENOLOL 50 MG TABLET PO SCH ×2 (09:23→20:34)
[2018-11-17 13:27] VITALS: BP 118/76
[2018-11-17 13:45] VITALS: BP 158/72
[2018-11-17] MEDS ORDERED: POTASSIUM CHLORIDE 40 MEQ in SODIUM CHLORIDE 0.9% 500 ML IV ONE (17:00)
[2018-11-17] MEDS: ENOXAPARIN 40 MG/0.4 ML SQ SCH (17:21)
[2018-11-17 19:00] VITALS: BP 123/78
[2018-11-18] MEDS: HYDROmorphone 2 MG/ML, 1ML IV PRN ×2 (01:06→08:23)
[2018-11-18 02:00] VITALS: BP 119/71
[2018-11-18 04:42] LABS: MEAN CORPUSCULAR HEMOGLOBIN 24.3 pg (27.0-34.8); MEAN CORPUSCULAR VOLUME 76.1 fL (80-100); MEAN PLATELET VOLUME 8.6 fL (7.4-10.4); PLATELET COUNT 193 x10^3/uL (130-400); RED BLOOD COUNT 3.53 x10^6/uL (3.82-5.3); RED CELL DISTRIBUTION WIDTH 22.2 % (9.6-15.2)
[2018-11-18 04:45] LABS: ANION GAP 6 mmol/L (5-15); CALCIUM 8.3 mg/dL (8.5-10.1); CHLORIDE 110 mmol/L (98-107); CREATININE 0.45 mg/dL (0.55-1.02)
[2018-11-18 06:19] LABS: BASOPHILS # (AUTO) 0.02 x10^3/uL (0-0.1); BASOPHILS % (AUTO) 0 % (0-1); EOSINOPHILS # (AUTO) 0.07 x10^3/uL (0-0.4); EOSINOPHILS % (AUTO) 1 % (1-7); LYMPHOCYTES # (AUTO) 1.24 x10^3/uL (1-3.4); LYMPHOCYTES % (AUTO) 24 % (22-44); MD SCAN; MONOCYTES % (AUTO) 10 % (2-9); NEUTROPHILS # (AUTO) 3.39 x10^3/uL (1.8-6.8); NEUTROPHILS % (AUTO) 65 % (42-75)
[2018-11-18] MEDS: PANTOPROZOLE 40MG TABLET PO SCH (06:29)
[2018-11-18] MEDS: PANTOPRAZOLE 40 MG IV IVPush SCH (06:37)
[2018-11-18] MEDS ORDERED: POTASSIUM CHLORIDE 40 MEQ in SODIUM CHLORIDE 0.9% 500 ML IV ONE (07:30)
[2018-11-18 08:13] VITALS: BP 142/90
[2018-11-18] MEDS: HYDROXYCHLOROQUINE 200 MG TABLET PO SCH (08:22)
[2018-11-18] MEDS: MULTIVITAMINS/MINERALS TABLET PO SCH (08:23)
[2018-11-18] MEDS: DULOXETINE 30 MG CAPSULE.DR PO SCH (08:23)
[2018-11-18] MEDS: ATENOLOL 50 MG TABLET PO SCH (08:23)
[2018-11-18] MEDS: AMLODIPINE 5 MG TABLET PO SCH (08:23)
[2018-11-18] MEDS: FOLIC ACID 1 MG TABLET PO SCH (08:23)
[2018-11-18] MEDS: THIAMINE 100MG TABLET PO SCH (08:24)
[2018-11-18] MEDS: BUPROPION 100 MG TABLET PO SCH (08:24)
[2018-11-18 12:43] VITALS: BP 136/92
[2018-11-18] MEDS: HYDROcodone/APAP 5/325 TABLET PO PRN (15:01)
[2018-11-18] MEDS ORDERED: FOLI-17 PO (16:54)
[2018-11-18] MEDS ORDERED: MULT-484 PO (16:54)
[2018-11-18] MEDS ORDERED: THIA100T67 PO (16:54)
== END 2018-11-18 21:09 | disposition home or self-care (01) | DRG 439 ==
LOC: ED 13:07 → EDIP 13:22 → 3NE 14:08
PROVIDERS: ADMIT Internal Medicine; ATTEND Internal Medicine
DX: K85.20 Alcohol induced acute pancreatitis without necrosis or infection (principal); E87.1 Hypo-osmolality and hyponatremia; F10.231 Alcohol dependence with withdrawal delirium; E87.6 Hypokalemia; F32.9 Major depressive disorder, single episode, unspecified; Z88.8 Allergy status to other drugs, medicaments and biological substances; I10 Essential (primary) hypertension; K76.0 Fatty (change of) liver, not elsewhere classified; K86.1 Other chronic pancreatitis; Z90.49 Acquired absence of other specified parts of digestive tract; Z98.84 Bariatric surgery status; M19.90 Unspecified osteoarthritis, unspecified site; Z98.51 Tubal ligation status; M32.9 Systemic lupus erythematosus, unspecified
CPT/HCPCS: 36415; 71046; 80048; 80053; 80307; 81001; 81025; 82150; 83690; 83735; 83930; 83935; 84132; 84300; 84439; 84443; 85025; 85651; 86038; 86140; 86225; 87040; 87086; 93005; 96374; 96375; 99285; G0378; J1170; J1650; J2405; J2550; J3480; C9113; J0360; J2060; J7030; J7040; J7517

== ENCOUNTER 2020-11-12 20:12 | Emergency (ER) | payer MEDICAID ==
[~2020-11-12] VITALS: Ht 162.6 cm; Wt 74.7 kg
[~2020-11-12 20:12] MED LIST changes: +FOLI1TAB32 PO; +HYDR-3653 PO; +MULT-484 PO; +THIA100T67 PO
[2020-11-12] MEDS ORDERED: ONDANSETRON 2MG/ML, 2ML IVPush ONE (21:00)
[2020-11-12] MEDS ORDERED: SODIUM CHLORIDE FLUSH 10ML SYR IVF ONE (21:00)
[2020-11-12] MEDS ORDERED: SODIUM CHLORIDE 0.9% 1,000ML IVBOLUS ONE (21:00)
[2020-11-12] MEDS ORDERED: MAGNESIUM SULFATE 1 GM, THIAMINE 100 MG, FOLIC ACID 1 MG in SODIUM CHLORIDE 0.9% 1,000 ML IV ONE (21:00)
[2020-11-12 21:02] LABS: PLATELET COUNT 168 x10^3/uL (130-400)
[2020-11-12 21:04] LABS: MEAN CORPUSCULAR HEMOGLOBIN 20.4 pg (27.0-34.8); MEAN CORPUSCULAR HGB CONC 30.2 g/dL (32.4-35.8); MEAN PLATELET VOLUME 8.6 fL (7.4-10.4); RED BLOOD COUNT 4.29 x10^6/uL (3.82-5.3); RED CELL DISTRIBUTION WIDTH 24.5 % (9.6-15.2)
[2020-11-12 21:13] LABS: ALANINE AMINOTRANSFERASE 42 U/L (12-78); ALBUMIN 3.4 g/dL (3.4-5.0); ANION GAP 10 mmol/L (5-15); CALCIUM 8.1 mg/dL (8.5-10.1); CHLORIDE 110 mmol/L (98-107); CREATININE 0.54 mg/dL (0.55-1.02)
[2020-11-12 21:17] LABS: ALKALINE PHOSPHATASE 143 U/L (45-117); BILIRUBIN,TOTAL 0.2 mg/dL (0.2-1.0); TOTAL PROTEIN 8.3 g/dL (6.4-8.2)
[2020-11-12] MEDS ORDERED: ONDANSETRON 2MG/ML, 2ML ONE (21:21)
[2020-11-12 21:23] LABS: MD YES
--- NOTE | 2020-11-12 21:25 | NUR ---
MED REQ TUBED TO LAB
[2020-11-12 21:28] LABS: BASOS#(MANUAL) 0.09 x10^3/uL (0-0.1); BASOS% (MANUAL) 3 % (0-1); EOS#(MANUAL) 0.06 x10^3/uL (0.0-0.4); EOS% (MANUAL) 2 % (1-7); LYMPH#(MANUAL) 1.61 x10^3/uL (1-3.4); LYMPHS% (MANUAL) 52 % (22-44); MONOS#(MANUAL) 0.19 x10^3/uL (0.3-2.7); MONOS% (MANUAL) 6 % (2-9); SEG#(MANUAL) 1.15 x10^3/uL (1.8-6.8); SEGS% (MANUAL) 37 % (42-75)
[2020-11-12 21:29] LABS: ANISOCYTOSIS 1+; HYPOCHROMIA 1+; TARGET CELLS 1+
[2020-11-12 21:30] LABS: <PLATELET ESTIMATE> ADEQUATE; <PLT MORPHOLOGY> NORMAL PLT MORPH; OVALOCYTES 1+; POLYCHROMASIA 1+
[2020-11-12 23:42] VITALS: BP 122/83
== END 2020-11-12 23:43 | disposition home or self-care (01) ==
LOC: ED 20:58
DX: F10.129 Alcohol abuse with intoxication, unspecified (principal); R11.10 Vomiting, unspecified; Y90.0 Blood alcohol level of less than 20 mg/100 ml
CPT/HCPCS: 36415; 80053; 80320; 85025; 96361; 96374; 96375; 99284; J2405; J3411; J3475; J7030; G0480